=== PATIENT | male | born 1985 | race African-American/Black ===

== ENCOUNTER 2019-03-10 20:36 | Emergency (ER) | payer MEDICAID ==
[~2019-03-10] VITALS: Ht 175.3 cm; Wt 145.0 kg
[2019-03-10 23:34] LABS: CHLORIDE 105 mEq/L (98-107)
[2019-03-10 23:51] LABS: BASOPHILS % 0.5 % (0.0-2.0); EOSINOPHILS % 1.5 % (0.0-5.0); HEMOGLOBIN. 14.3 g/dL (14.0-18.0); LYMPHOCYTES % 26.3 % (20.0-50.0); MEAN CORPUSCULAR HEMOGLOBIN 28.1 pg (28.0-32.0); MEAN CORPUSCULAR VOLUME 86.2 fL (80.0-94.0); MEAN PLATELET VOLUME 9.7 fl (7.4-10.4); MONOCYTES % 6.8 % (2.0-8.0); NEUTROPHILS % 64.9 % (40.0-76.0); PLATELET 150 x1000/uL (130-400); RED BLOOD CELL COUNT 5.11 mill/uL (4.7-6.1); RED CELL DISTRIBUTION WIDTH 13.1 % (11.6-14.6)
[2019-03-10 23:56] LABS: CLARITY URINE CLEAR (CLEAR); COLOR URINE YELLOW (YELLOW); KETONES URINE NEGATIVE (NEGATIVE); LEUKOCYTE ESTERASE URINE 1+ (NEGATIVE); NITRITE URINE NEGATIVE (NEGATIVE); OCCULT BLOOD URINE NEGATIVE (NEGATIVE); PROTEIN URINE NEGATIVE (NEGATIVE); SPECIFIC GRAVITY URINE 1.004 (1.005-1.030); UROBILINOGEN URINE 0.2 E.U./dL (0.2-1.0)
[2019-03-11] MEDS ORDERED: CEFTRIAXONE SODIUM 250 MG/VIAL IM ONE (00:15)
[2019-03-11] MEDS ORDERED: AZITHROMYCIN 500 MG TABLET PO ONE (00:15)
[2019-03-11 01:30] VITALS: BP 138/81
== END 2019-03-11 01:31 | disposition home or self-care (01) ==
LOC: ER 20:36
DX: N34.2 Other urethritis (principal); R20.2 Paresthesia of skin; Z87.828 Personal history of other (healed) physical injury and trauma
CPT/HCPCS: 36415; 80048; 81003; 85025; 96372; 99283; J0696

== ENCOUNTER 2019-03-19 17:23 | Emergency (ER) | payer MEDICAID ==
[~2019-03-19] VITALS: Ht 175.3 cm; Wt 141.0 kg
[2019-03-19] MEDS ORDERED: KETOROLAC 30MG/ML VIAL IV STA (18:13)
[2019-03-19] MEDS ORDERED: MORPHINE SULFATE 4 MG/ML CPJ (NOT FOR IM USE) IV STA (18:13)
[2019-03-19] MEDS ORDERED: ONDANSETRON HCL 4MG/2ML INJ IV STA (18:13)
[2019-03-19] MEDS ORDERED: SODIUM CHLORIDE 0.9% 1,000 ML IV ONE (18:13)
[2019-03-19] MEDS ORDERED: LEVOFLOXACIN 750MG PREMIX 150 ML IV ONE (18:15)
[2019-03-19 18:25] LABS: BASOPHILS % 1.2 % (0.0-2.0); EOSINOPHILS % 2.2 % (0.0-5.0); HEMATOCRIT. 41.5 % (42.0-52.0); HEMOGLOBIN. 13.8 g/dL (14.0-18.0); LYMPHOCYTES % 27.9 % (20.0-50.0); MEAN CORPUSCULAR HEMOGLOBIN 28.4 pg (28.0-32.0); MEAN CORPUSCULAR VOLUME 85.6 fL (80.0-94.0); MEAN PLATELET VOLUME 9.6 fl (7.4-10.4); MONOCYTES % 6.6 % (2.0-8.0); NEUTROPHILS % 62.1 % (40.0-76.0); PLATELET 142 x1000/uL (130-400); RED BLOOD CELL COUNT 4.85 mill/uL (4.7-6.1); RED CELL DISTRIBUTION WIDTH 13.1 % (11.6-14.6)
[2019-03-19 18:27] LABS: CLARITY URINE CLEAR (CLEAR); COLOR URINE YELLOW (YELLOW); KETONES URINE NEGATIVE (NEGATIVE); LEUKOCYTE ESTERASE URINE 1+ (NEGATIVE); NITRITE URINE NEGATIVE (NEGATIVE); OCCULT BLOOD URINE NEGATIVE (NEGATIVE); PH URINE 6.5 (4.5-8.0); PROTEIN URINE NEGATIVE (NEGATIVE); SPECIFIC GRAVITY URINE 1.002 (1.005-1.030); UROBILINOGEN URINE 0.2 E.U./dL (0.2-1.0)
[2019-03-19 18:29] LABS: CHLORIDE 104 mEq/L (98-107)
[2019-03-19 18:34] LABS: ETHANOL BLOOD < 10 mg/dL
[2019-03-19 19:17] LABS: *COCAINE SCREEN URINE NEGATIVE (NEGATIVE)
[2019-03-19 19:18] LABS: CANNABINOID URINE SCREEN NEGATIVE (NEGATIVE); METHADONE URINE SCREEN NEGATIVE (NEGATIVE); OPIATES URINE SCREEN NEGATIVE (NEGATIVE); PHENCYCLIDINE URINE SCREEN NEGATIVE (NEGATIVE)
[2019-03-19 19:19] LABS: *AMPHETAMINES SCREEN URINE NEGATIVE (NEGATIVE); *BARBITURATES SCREEN URINE NEGATIVE (NEGATIVE); *BENZODIAZEPINES SCREEN URINE NEGATIVE (NEGATIVE)
[2019-03-19 21:40] VITALS: BP 113/63
== END 2019-03-19 21:44 | disposition home or self-care (01) ==
LOC: ER 17:23
DX: N39.0 Urinary tract infection, site not specified (principal); Z87.828 Personal history of other (healed) physical injury and trauma
CPT/HCPCS: 36415; 74176; 80053; 80305; 80320; 81003; 83690; 85025; 85610; 96365; 96366; 96375; 99284; J1885; J1956; J2270; J2405; J7030; G0480

== ENCOUNTER 2019-03-21 23:50 | Emergency (ER) | payer MEDICAID ==
[~2019-03-21] VITALS: Ht 175.3 cm; Wt 141.0 kg
[2019-03-22] MEDS ORDERED: VISCOUS LIDOCAINE 2% 15 ML UDC MM STA (00:44)
[2019-03-22] MEDS ORDERED: MAGNESIUM/ALUMINUM HYDROXIDE/SIMETHICONE 30ML UDC PO ONE (00:45)
[2019-03-22] MEDS ORDERED: KETOROLAC 30MG/ML VIAL IV ONE (00:45)
[2019-03-22 02:49] VITALS: BP 129/75
== END 2019-03-22 02:49 | disposition home or self-care (01) ==
LOC: ER 23:50
DX: R07.89 Other chest pain (principal); Z87.891 Personal history of nicotine dependence; Z79.899 Other long term (current) drug therapy
CPT/HCPCS: 71045; 93005; 96374; 99283; J1885

== ENCOUNTER 2019-03-29 23:27 | Emergency (ER) | payer MEDICAID ==
[~2019-03-29] VITALS: Ht 175.3 cm; Wt 141.0 kg
[2019-03-30 00:01] VITALS: BP 127/85
[2019-03-30 01:27] LABS: CLARITY URINE CLEAR (CLEAR); COLOR URINE YELLOW (YELLOW); KETONES URINE NEGATIVE (NEGATIVE); LEUKOCYTE ESTERASE URINE TRACE (NEGATIVE); NITRITE URINE NEGATIVE (NEGATIVE); OCCULT BLOOD URINE NEGATIVE (NEGATIVE); PROTEIN URINE NEGATIVE (NEGATIVE); SPECIFIC GRAVITY URINE 1.004 (1.005-1.030); UROBILINOGEN URINE 0.2 E.U./dL (0.2-1.0)
== END 2019-03-30 02:30 | disposition home or self-care (01) ==
LOC: ER 23:27
DX: L29.9 Pruritus, unspecified (principal); G89.29 Other chronic pain; M54.9 Dorsalgia, unspecified; Z98.890 Other specified postprocedural states
CPT/HCPCS: 81003; 99283

== ENCOUNTER 2019-04-01 10:02 | Emergency (ER) | payer MEDICAID ==
[~2019-04-01] VITALS: Ht 175.3 cm; Wt 141.0 kg
[2019-04-01 10:20] VITALS: BP 114/78
[2019-04-01 11:11] LABS: CLARITY URINE CLEAR (CLEAR); COLOR URINE YELLOW (YELLOW); KETONES URINE NEGATIVE (NEGATIVE); LEUKOCYTE ESTERASE URINE TRACE (NEGATIVE); NITRITE URINE NEGATIVE (NEGATIVE); OCCULT BLOOD URINE NEGATIVE (NEGATIVE); PH URINE 6.5 (4.5-8.0); PROTEIN URINE NEGATIVE (NEGATIVE); SPECIFIC GRAVITY URINE 1.005 (1.005-1.030); UROBILINOGEN URINE 0.2 E.U./dL (0.2-1.0)
== END 2019-04-01 11:18 | disposition home or self-care (01) ==
LOC: ER 10:02
DX: M54.5 Low back pain (principal); Z87.828 Personal history of other (healed) physical injury and trauma; Z98.890 Other specified postprocedural states
CPT/HCPCS: 81003; 99283

== ENCOUNTER 2019-04-04 20:43 | Emergency (ER) | payer MEDICAID ==
[~2019-04-04] VITALS: Ht 175.3 cm; Wt 141.0 kg
[2019-04-04] MEDS ORDERED: KETOROLAC 60MG/2ML VIAL IM STA (21:58)
[2019-04-04] MEDS ORDERED: MAGNESIUM/ALUMINUM HYDROXIDE/SIMETHICONE 30ML UDC PO ONE (22:00)
[2019-04-04] MEDS ORDERED: VISCOUS LIDOCAINE 2% 15 ML UDC PO ONE (22:00)
[2019-04-04 23:28] LABS: BASOPHILS % 0.6 % (0.0-2.0); EOSINOPHILS % 2.5 % (0.0-5.0); HEMATOCRIT. 39.6 % (42.0-52.0); HEMOGLOBIN. 12.8 g/dL (14.0-18.0); LYMPHOCYTES % 33.4 % (20.0-50.0); MEAN CORPUSCULAR HEMOGLOBIN 27.9 pg (28.0-32.0); MEAN CORPUSCULAR VOLUME 86.1 fL (80.0-94.0); MEAN PLATELET VOLUME 9.7 fl (7.4-10.4); MONOCYTES % 6.7 % (2.0-8.0); NEUTROPHILS % 56.8 % (40.0-76.0); PLATELET 150 x1000/uL (130-400); RED CELL DISTRIBUTION WIDTH 13.2 % (11.6-14.6)
[2019-04-04 23:29] LABS: CHLORIDE 105 mEq/L (98-107)
[2019-04-05 00:34] LABS: CLARITY URINE CLEAR (CLEAR); COLOR URINE YELLOW (YELLOW); KETONES URINE NEGATIVE (NEGATIVE); LEUKOCYTE ESTERASE URINE NEGATIVE (NEGATIVE); NITRITE URINE NEGATIVE (NEGATIVE); OCCULT BLOOD URINE NEGATIVE (NEGATIVE); PROTEIN URINE NEGATIVE (NEGATIVE); SPECIFIC GRAVITY URINE 1.002 (1.005-1.030); UROBILINOGEN URINE 0.2 E.U./dL (0.2-1.0)
[2019-04-05 01:55] VITALS: BP 142/56
== END 2019-04-05 01:57 | disposition home or self-care (01) ==
LOC: ER 20:43
DX: R07.89 Other chest pain (principal); R06.02 Shortness of breath; Z98.890 Other specified postprocedural states
CPT/HCPCS: 36415; 71045; 80053; 81003; 83880; 84484; 85025; 93005; 96372; 99284; J1885

== ENCOUNTER 2019-04-07 19:31 | Emergency (ER) | payer MEDICAID ==
[~2019-04-07] VITALS: Ht 175.3 cm; Wt 139.2 kg
[2019-04-07] MEDS ORDERED: KETOROLAC 30MG/ML VIAL IV STA (22:17)
[2019-04-07 22:58] LABS: BASOPHILS % 0.9 % (0.0-2.0); EOSINOPHILS % 2.1 % (0.0-5.0); HEMATOCRIT. 41.2 % (42.0-52.0); HEMOGLOBIN. 13.6 g/dL (14.0-18.0); LYMPHOCYTES % 29.8 % (20.0-50.0); MEAN CORPUSCULAR HEMOGLOBIN 28.3 pg (28.0-32.0); MEAN CORPUSCULAR VOLUME 85.5 fL (80.0-94.0); MEAN PLATELET VOLUME 9.5 fl (7.4-10.4); MONOCYTES % 6.1 % (2.0-8.0); NEUTROPHILS % 61.1 % (40.0-76.0); PLATELET 144 x1000/uL (130-400); RED BLOOD CELL COUNT 4.82 mill/uL (4.7-6.1); RED CELL DISTRIBUTION WIDTH 13.6 % (11.6-14.6)
[2019-04-07 23:02] LABS: CHLORIDE 104 mEq/L (98-107)
[2019-04-08 01:30] VITALS: BP 112/58
== END 2019-04-08 01:30 | disposition home or self-care (01) ==
LOC: ER 19:31
DX: M94.0 Chondrocostal junction syndrome [Tietze] (principal); Z98.890 Other specified postprocedural states
CPT/HCPCS: 36415; 71045; 80053; 83880; 84484; 85025; 93005; 96374; 99284; J1885; Z7610

== ENCOUNTER 2020-06-12 23:30 | Emergency (ER) | payer MEDICAID ==
[~2020-06-12] VITALS: Ht 175.3 cm; Wt 138.0 kg
[2020-06-12 23:46] VITALS: BP 162/81
[2020-06-13 00:28] LABS: CLARITY URINE CLEAR (CLEAR); COLOR URINE YELLOW (YELLOW); KETONES URINE NEGATIVE (NEGATIVE); LEUKOCYTE ESTERASE URINE 2+ (NEGATIVE); NITRITE URINE NEGATIVE (NEGATIVE); OCCULT BLOOD URINE NEGATIVE (NEGATIVE); PH URINE 6.5 (4.5-8.0); PROTEIN URINE NEGATIVE (NEGATIVE); SPECIFIC GRAVITY URINE 1.022 (1.005-1.030)
[2020-06-13 00:33] LABS: BASOPHILS % 0.9 % (0.0-2.0); EOSINOPHILS % 2.4 % (0.0-5.0); HEMATOCRIT. 41.1 % (42.0-52.0); HEMOGLOBIN. 13.7 g/dL (14.0-18.0); LYMPHOCYTES % 27.3 % (20.0-50.0); MEAN CORPUSCULAR HEMOGLOBIN 27.7 pg (28.0-32.0); MEAN CORPUSCULAR VOLUME 82.9 fL (80.0-94.0); MEAN PLATELET VOLUME 9.4 fl (7.4-10.4); MONOCYTES % 7.1 % (2.0-8.0); NEUTROPHILS % 62.3 % (40.0-76.0); PLATELET 151 x1000/uL (130-400); RED BLOOD CELL COUNT 4.95 mill/uL (4.7-6.1); RED CELL DISTRIBUTION WIDTH 14.5 % (11.6-14.6)
[2020-06-13 00:38] LABS: CHLORIDE 105 mEq/L (98-107)
[2020-06-13] MEDS ORDERED: CEFTRIAXONE 1 G PREMIX 50 ML IV ONE (00:45)
[2020-06-13] MEDS ORDERED: CEFTRIAXONE SODIUM 1 G/VIAL IM ONE (01:15)
[2020-06-16 04:11] LABS: NEISSERIA GONORRHOEAE NAA Negative (Negative)
== END 2020-06-13 02:19 | disposition home or self-care (01) ==
LOC: ER 23:30
DX: N39.0 Urinary tract infection, site not specified (principal)
CPT/HCPCS: 36415; 80048; 81003; 83690; 85025; 87086; 87491; 87591; 93005; 96372; 99284; J0696

== ENCOUNTER 2020-07-15 01:22 | Emergency (ER) | payer MEDICAID ==
[~2020-07-15] VITALS: Ht 175.3 cm; Wt 134.0 kg
[2020-07-15 02:19] LABS: EOSINOPHILS % 1.3 % (0.0-5.0); HEMATOCRIT. 42.6 % (42.0-52.0); HEMOGLOBIN. 13.9 g/dL (14.0-18.0); LYMPHOCYTES % 26.5 % (20.0-50.0); MEAN CORPUSCULAR HEMOGLOBIN 27.3 pg (28.0-32.0); MEAN CORPUSCULAR VOLUME 83.9 fL (80.0-94.0); MEAN PLATELET VOLUME 9.6 fl (7.4-10.4); MONOCYTES % 6.3 % (2.0-8.0); NEUTROPHILS % 64.9 % (40.0-76.0); PLATELET 169 x1000/uL (130-400); RED BLOOD CELL COUNT 5.08 mill/uL (4.7-6.1); RED CELL DISTRIBUTION WIDTH 14.1 % (11.6-14.6)
[2020-07-15 02:24] LABS: CHLORIDE 109 mEq/L (98-107)
[2020-07-15 03:33] LABS: CLARITY URINE CLEAR (CLEAR); COLOR URINE YELLOW (YELLOW); KETONES URINE NEGATIVE (NEGATIVE); LEUKOCYTE ESTERASE URINE 2+ (NEGATIVE); NITRITE URINE NEGATIVE (NEGATIVE); OCCULT BLOOD URINE NEGATIVE (NEGATIVE); PROTEIN URINE NEGATIVE (NEGATIVE); SPECIFIC GRAVITY URINE 1.022 (1.005-1.030)
[2020-07-15] MEDS ORDERED: CEFTRIAXONE SODIUM 1 G/VIAL IM ONE (05:15)
[2020-07-15] MEDS ORDERED: LIDOCAINE HCL 1% 20ML VIAL (Pyxis) INJ INFIL ONE (05:15)
[2020-07-15 05:30] VITALS: BP 138/82
== END 2020-07-15 05:48 | disposition home or self-care (01) ==
LOC: ER 01:22
DX: N39.0 Urinary tract infection, site not specified (principal)
CPT/HCPCS: 36415; 80053; 81003; 85025; 87086; 93005; 96372; 99284; J0696; J3490

== ENCOUNTER 2021-06-12 05:20 | Emergency (ER) | payer MEDICAID ==
[~2021-06-12] VITALS: Ht 175.3 cm; Wt 125.0 kg
[2021-06-12 05:47] VITALS: BP 161/89
[2021-06-12] MEDS ORDERED: TOPUD PO (05:51)
== END 2021-06-12 06:28 | disposition home or self-care (01) ==
LOC: ER 05:20
DX: R07.0 Pain in throat (principal); Z20.822 Contact with and (suspected) exposure to COVID-19
CPT/HCPCS: 99282

== ENCOUNTER 2023-06-26 02:27 | Emergency (ER) | payer MEDICAID ==
[~2023-06-26] VITALS: Ht 175.3 cm; Wt 166.9 kg
[~2023-06-26 02:27] MED LIST: TOPUD PO
[2023-06-26 02:37] VITALS: BP 144/86; PULSE 71; RESP 24; TEMP 98.5; O2SAT 99
[2023-06-26 03:13] LABS: BASOPHILS % 0.8 % (0.0-2.0); EOSINOPHILS % 2.4 % (0.0-5.0); HEMATOCRIT. 42.6 % (42.0-52.0); HEMOGLOBIN. 14.1 g/dL (14.0-18.0); LYMPHOCYTES % 40.5 % (20.0-50.0); MEAN CORPUSCULAR HEMOGLOBIN 28.2 pg (28.0-32.0); MEAN CORPUSCULAR VOLUME 85.5 fL (80.0-94.0); MEAN PLATELET VOLUME 9.2 fl (7.4-10.4); NEUTROPHILS % 49.3 % (40.0-76.0); PLATELET 144 x1000/uL (130-400); RED BLOOD CELL COUNT 4.98 mill/uL (4.7-6.1); RED CELL DISTRIBUTION WIDTH 14.5 % (11.6-14.6); WHITE BLOOD COUNT 7.3 x1000/uL (4.5-11.0)
[2023-06-26 03:24] LABS: CLARITY URINE CLEAR (CLEAR); COLOR URINE YELLOW (YELLOW); GLUCOSE URINE NEGATIVE (NEGATIVE); KETONES URINE NEGATIVE (NEGATIVE); LEUKOCYTE ESTERASE URINE NEGATIVE (NEGATIVE); NITRITE URINE NEGATIVE (NEGATIVE); OCCULT BLOOD URINE NEGATIVE (NEGATIVE); PROTEIN URINE NEGATIVE (NEGATIVE); UROBILINOGEN URINE 0.2 E.U./dL (0.2-1.0)
[2023-06-26 03:36] LABS: ALANINE AMINOTRANSFERASE 26 IU/L (10-49); ALBUMIN 4.6 g/dL (3.2-4.8); ASPARTATE AMINOTRANSFERASE 19 IU/L (<34); BILIRUBIN TOTAL 0.5 mg/dL (0.1-1.0); CALCIUM 9.9 mg/dL (8.7-10.4); CARBON DIOXIDE 26 mEq/L (21-32); CHLORIDE 104 mEq/L (98-107); CREATININE 0.9 mg/dL (0.6-1.3); GLUCOSE 101 mg/dL (70-105); PROTEIN TOTAL 7.4 g/dL (6.0-8.3); SODIUM 139 mEq/L (136-145); UREA NITROGEN BLOOD 8 mg/dL (9-23)
[2023-06-26 03:49] LABS: TROPONIN I HIGH SENSITIVITY < 4 ng/L (3.0-53)
[2023-06-26] MEDS ORDERED: IBUPROFEN 600MG TABLET PO ONE (04:30)
== END 2023-06-26 04:44 | disposition home or self-care (01) ==
LOC: ER 03:06
DX: R07.89 Other chest pain (principal); R10.9 Unspecified abdominal pain
CPT/HCPCS: 36415; 71045; 80053; 81003; 84484; 85025; 93005; 99285

== ENCOUNTER 2023-07-11 00:05 | Emergency (ER) | payer OTHER, MEDICAID ==
[~2023-07-11] VITALS: Ht 175.3 cm; Wt 167.0 kg
[2023-07-11 00:40] VITALS: TEMP 98.4; O2SAT 98
[2023-07-11 01:48] LABS: BASOPHILS % 0.6 % (0.0-2.0); EOSINOPHILS % 1.8 % (0.0-5.0); HEMATOCRIT. 40.9 % (42.0-52.0); HEMOGLOBIN. 13.5 g/dL (14.0-18.0); LYMPHOCYTES % 25.4 % (20.0-50.0); MEAN CORPUSCULAR HEMOGLOBIN 28.3 pg (28.0-32.0); MEAN CORPUSCULAR HGB CONC 32.9 g/dL (31.0-37.0); MEAN CORPUSCULAR VOLUME 85.8 fL (80.0-94.0); MEAN PLATELET VOLUME 9.2 fl (7.4-10.4); MONOCYTES % 6.2 % (2.0-8.0); PLATELET 157 x1000/uL (130-400); RED BLOOD CELL COUNT 4.76 mill/uL (4.7-6.1); RED CELL DISTRIBUTION WIDTH 14.2 % (11.6-14.6); WHITE BLOOD COUNT 11.8 x1000/uL (4.5-11.0)
[2023-07-11 02:00] LABS: ALANINE AMINOTRANSFERASE 13 IU/L (10-49); ALBUMIN 4.3 g/dL (3.2-4.8); ASPARTATE AMINOTRANSFERASE 13 IU/L (<34); BILIRUBIN TOTAL 0.6 mg/dL (0.1-1.0); CALCIUM 9.4 mg/dL (8.7-10.4); CARBON DIOXIDE 23 mEq/L (21-32); CHLORIDE 103 mEq/L (98-107); CREATININE 0.8 mg/dL (0.6-1.3); GLUCOSE 98 mg/dL (70-105); POTASSIUM 3.8 mEq/L (3.5-5.1); PROTEIN TOTAL 7.5 g/dL (6.0-8.3); SODIUM 137 mEq/L (136-145); UREA NITROGEN BLOOD 12 mg/dL (9-23)
[2023-07-11 02:35] LABS: TROPONIN I HIGH SENSITIVITY < 4 ng/L (3.0-53)
[2023-07-11] MEDS ORDERED: LIDOCAINE 5% PATCH TOP ONE (03:30)
[2023-07-11] MEDS ORDERED: KETOROLAC 60MG/2ML VIAL IM ONE (03:30)
[2023-07-11] MEDS ORDERED: HYDROCODONE/ACETAMINOPHEN 5/325MG TABLET PO ONE (03:30)
[2023-07-11 03:33] LABS: CLARITY URINE CLOUDY (CLEAR); COLOR URINE YELLOW (YELLOW); GLUCOSE URINE NEGATIVE (NEGATIVE); KETONES URINE NEGATIVE (NEGATIVE); LEUKOCYTE ESTERASE URINE 2+ (NEGATIVE); NITRITE URINE NEGATIVE (NEGATIVE); OCCULT BLOOD URINE NEGATIVE (NEGATIVE); PROTEIN URINE NEGATIVE (NEGATIVE); SPECIFIC GRAVITY URINE 1.017 (1.005-1.030); UROBILINOGEN URINE 0.2 E.U./dL (0.2-1.0)
[2023-07-11 03:54] VITALS: BP 162/97; PULSE 87; RESP 18
[2023-07-11 04:25] LABS: TROPONIN I HIGH SENSITIVITY < 4 ng/L (3.0-53)
[2023-07-11 04:26] LABS: BACTERIA URINE TRACE; RBC URINE NONE SEEN /hpf (0-2); SQUAMOUS EPITHELIAL CELL URINE 1+ /lpf (RARE/1+); WBC URINE 25-50 /hpf (0-2)
[2023-07-11] MEDS ORDERED: BACL-141 MT (04:30)
[2023-07-11] MEDS ORDERED: NAPR275T96 MT (04:30)
== END 2023-07-11 04:44 | disposition home or self-care (01) ==
LOC: ER 00:05
DX: R07.89 Other chest pain (principal)
CPT/HCPCS: 80053; 81003; 85025; 87086; 84484; 36415; 71045; 93005; 96372; 99285; J1885; Z7610

== ENCOUNTER 2023-07-16 18:22 | Emergency (ER) | payer MEDICAID, OTHER ==
[~2023-07-16] VITALS: Ht 177.8 cm; Wt 133.0 kg
[~2023-07-16 18:22] MED LIST changes: +BACL-141 MT; +NAPR275T96 MT
[2023-07-16 18:32] VITALS: O2SAT 98
[2023-07-16 18:53] LABS: CLARITY URINE CLEAR (CLEAR); COLOR URINE YELLOW (YELLOW); GLUCOSE URINE NEGATIVE (NEGATIVE); KETONES URINE NEGATIVE (NEGATIVE); LEUKOCYTE ESTERASE URINE TRACE (NEGATIVE); NITRITE URINE NEGATIVE (NEGATIVE); OCCULT BLOOD URINE NEGATIVE (NEGATIVE); PH URINE 5.5 (4.5-8.0); PROTEIN URINE NEGATIVE (NEGATIVE); SPECIFIC GRAVITY URINE 1.014 (1.005-1.030); UROBILINOGEN URINE 0.2 E.U./dL (0.2-1.0)
[2023-07-16 19:51] LABS: BACTERIA URINE 1+; RBC URINE 0-2 /hpf (0-2); SQUAMOUS EPITHELIAL CELL URINE FEW /lpf (RARE/1+)
[2023-07-16] MEDS ORDERED: ONDANSETRON HCL 4MG/2ML INJ IV STA (20:13)
[2023-07-16] MEDS ORDERED: MORPHINE SULFATE 4 MG/ML CPJ (NOT FOR IM USE) IV STA (20:13)
[2023-07-16 20:22] LABS: BASOPHILS % 0.6 % (0.0-2.0); EOSINOPHILS % 2.1 % (0.0-5.0); HEMATOCRIT. 41.8 % (42.0-52.0); HEMOGLOBIN. 13.5 g/dL (14.0-18.0); LYMPHOCYTES % 26.5 % (20.0-50.0); MEAN CORPUSCULAR HEMOGLOBIN 27.9 pg (28.0-32.0); MEAN CORPUSCULAR HGB CONC 32.4 g/dL (31.0-37.0); MEAN CORPUSCULAR VOLUME 86.1 fL (80.0-94.0); MEAN PLATELET VOLUME 9.4 fl (7.4-10.4); MONOCYTES % 5.9 % (2.0-8.0); NEUTROPHILS % 64.9 % (40.0-76.0); PLATELET 156 x1000/uL (130-400); RED BLOOD CELL COUNT 4.86 mill/uL (4.7-6.1); WHITE BLOOD COUNT 10.4 x1000/uL (4.5-11.0)
[2023-07-16 20:36] LABS: ALANINE AMINOTRANSFERASE 15 IU/L (10-49); ALBUMIN 4.8 g/dL (3.2-4.8); ASPARTATE AMINOTRANSFERASE 17 IU/L (<34); BILIRUBIN TOTAL 0.7 mg/dL (0.1-1.0); CALCIUM 9.8 mg/dL (8.7-10.4); CARBON DIOXIDE 26 mEq/L (21-32); CHLORIDE 103 mEq/L (98-107); CREATININE 0.8 mg/dL (0.6-1.3); GLUCOSE 92 mg/dL (70-105); POTASSIUM 3.9 mEq/L (3.5-5.1); PROTEIN TOTAL 7.3 g/dL (6.0-8.3); SODIUM 136 mEq/L (136-145); UREA NITROGEN BLOOD 6 mg/dL (9-23)
[2023-07-16 20:50] LABS: TROPONIN I HIGH SENSITIVITY < 4 ng/L (3.0-53)
[2023-07-16] MEDS ORDERED: DOCUSATE SODIUM 100MG CAPSULE PO ONE (23:00)
[2023-07-17] MEDS ORDERED: MORPHINE SULFATE 4 MG/ML CPJ (NOT FOR IM USE) IV NR (02:30)
[2023-07-17] MEDS ORDERED: ACET-2708 MT (02:39)
[2023-07-17] MEDS ORDERED: SULF1TAB48 MT (02:40)
[2023-07-17] MEDS ORDERED: POLY17PO3 MT (02:43)
[2023-07-17] MEDS ORDERED: DOCUSATE SODIUM 100MG CAPSULE PO NR (02:45)
[2023-07-17] MEDS ORDERED: ONDANSETRON HCL 4MG/2ML INJ IV NR (02:45)
[2023-07-17 03:10] VITALS: BP 125/65; PULSE 56; RESP 16; TEMP 98.1
== END 2023-07-17 03:15 | disposition home or self-care (01) ==
LOC: ER 18:22
DX: K59.00 Constipation, unspecified (principal); N39.0 Urinary tract infection, site not specified; Z98.890 Other specified postprocedural states
CPT/HCPCS: 80053; 81003; 83690; 85025; 84484; 36415; 71045; 74176; 93005; 99285; 96374; 96375; J2405; J2270; Z7610 ×2

== ENCOUNTER 2023-08-27 19:16 | Emergency (ER) | payer MEDICAID ==
[~2023-08-27] VITALS: Ht 175.3 cm; Wt 150.0 kg
[~2023-08-27 19:16] MED LIST changes: +ACET-2708 MT; +POLY17PO3 MT; +SULF1TAB48 MT
[2023-08-27 19:22] VITALS: O2SAT 98
[2023-08-27 19:47] LABS: CLARITY URINE CLEAR (CLEAR); COLOR URINE YELLOW (YELLOW); GLUCOSE URINE NEGATIVE (NEGATIVE); KETONES URINE NEGATIVE (NEGATIVE); LEUKOCYTE ESTERASE URINE 2+ (NEGATIVE); NITRITE URINE NEGATIVE (NEGATIVE); OCCULT BLOOD URINE NEGATIVE (NEGATIVE); PROTEIN URINE NEGATIVE (NEGATIVE); SPECIFIC GRAVITY URINE 1.021 (1.005-1.030); UROBILINOGEN URINE 0.2 E.U./dL (0.2-1.0)
[2023-08-27 19:50] LABS: BASOPHILS % 0.9 % (0.0-2.0); EOSINOPHILS % 2.2 % (0.0-5.0); HEMATOCRIT. 43.8 % (42.0-52.0); HEMOGLOBIN. 14.3 g/dL (14.0-18.0); LYMPHOCYTES % 33.4 % (20.0-50.0); MEAN CORPUSCULAR HGB CONC 32.7 g/dL (31.0-37.0); MEAN CORPUSCULAR VOLUME 85.5 fL (80.0-94.0); MEAN PLATELET VOLUME 9.7 fl (7.4-10.4); MONOCYTES % 5.6 % (2.0-8.0); NEUTROPHILS % 57.9 % (40.0-76.0); PLATELET 158 x1000/uL (130-400); RED BLOOD CELL COUNT 5.12 mill/uL (4.7-6.1); RED CELL DISTRIBUTION WIDTH 13.8 % (11.6-14.6)
[2023-08-27 20:08] LABS: BACTERIA URINE 1+; RBC URINE 0-2 /hpf (0-2); SQUAMOUS EPITHELIAL CELL URINE RARE /lpf (RARE/1+); WBC URINE 25-50 /hpf (0-2)
[2023-08-27 20:15] LABS: CALCIUM 9.8 mg/dL (8.7-10.4); CARBON DIOXIDE 27 mEq/L (21-32); CHLORIDE 105 mEq/L (98-107); CREATININE 0.8 mg/dL (0.6-1.3); GLUCOSE 93 mg/dL (70-105); POTASSIUM 3.9 mEq/L (3.5-5.1); PROTEIN TOTAL 8.1 g/dL (6.0-8.3); SODIUM 138 mEq/L (136-145); UREA NITROGEN BLOOD 10 mg/dL (9-23)
[2023-08-27 20:16] LABS: ALANINE AMINOTRANSFERASE 23 IU/L (10-49); ASPARTATE AMINOTRANSFERASE 15 IU/L (<34); BILIRUBIN TOTAL 0.6 mg/dL (0.1-1.0)
[2023-08-27] MEDS: CEFTRIAXONE SODIUM 1G VIAL IM ONE (22:30)
[2023-08-27] MEDS: ONDANSETRON 4MG ODT PO ONE (22:30)
[2023-08-27] MEDS: KETOROLAC 30MG/ML VIAL IM ONE (22:30)
[2023-08-28] MEDS ORDERED: CEFP200T13 MT (00:19)
[2023-08-28] MEDS ORDERED: IBUP-2029 MT (00:20)
[2023-08-28 00:30] VITALS: BP 132/77; PULSE 65; RESP 18; TEMP 98.6
== END 2023-08-28 00:44 | disposition home or self-care (01) ==
LOC: ER 19:16
DX: N39.0 Urinary tract infection, site not specified (principal)
CPT/HCPCS: 99285; 76770; 80053; 81003; 85025; 87086; 36415; 96372; Q0162; J0696; J1885

== ENCOUNTER 2024-01-10 09:16 | Emergency (ER) | payer MEDICAID ==
[~2024-01-10] VITALS: Ht 182.9 cm; Wt 138.0 kg
[~2024-01-10 09:16] MED LIST changes: +CEFP200T13 MT; +IBUP-2029 MT
[2024-01-10 09:21] VITALS: BP 155/75; PULSE 101; RESP 18; TEMP 98.1; O2SAT 97
[2024-01-10 09:49] LABS: BASOPHILS % 0.7 % (0.0-2.0); EOSINOPHILS % 1.8 % (0.0-5.0); HEMATOCRIT. 44.5 % (42.0-52.0); HEMOGLOBIN. 14.3 g/dL (14.0-18.0); LYMPHOCYTES % 31.5 % (20.0-50.0); MEAN CORPUSCULAR HEMOGLOBIN 28.1 pg (28.0-32.0); MEAN CORPUSCULAR VOLUME 87.7 fL (80.0-94.0); MEAN PLATELET VOLUME 8.9 fl (7.4-10.4); MONOCYTES % 6.7 % (2.0-8.0); NEUTROPHILS % 59.3 % (40.0-76.0); PLATELET 180 x1000/uL (130-400); RED BLOOD CELL COUNT 5.08 mill/uL (4.7-6.1); RED CELL DISTRIBUTION WIDTH 14.1 % (11.6-14.6); WHITE BLOOD COUNT 10.2 x1000/uL (4.5-11.0)
[2024-01-10 09:57] LABS: CHLORIDE 102 mEq/L (98-107); POTASSIUM 4.3 mEq/L (3.5-5.1); SODIUM 137 mEq/L (136-145)
[2024-01-10 09:58] LABS: CALCIUM 9.7 mg/dL (8.7-10.4); CARBON DIOXIDE 29 mEq/L (21-32)
[2024-01-10 10:03] LABS: CREATININE 0.9 mg/dL (0.6-1.3); GLUCOSE 97 mg/dL (70-105); UREA NITROGEN BLOOD 13 mg/dL (9-23)
== END 2024-01-10 10:22 | disposition home or self-care (01) ==
LOC: ER 09:31
DX: R42 Dizziness and giddiness (principal); Z79.899 Other long term (current) drug therapy
CPT/HCPCS: 36415; 71045; 80048; 85025; 93005; 99285